=== PATIENT | female | born 1975 | race Caucasian/White ===

== ENCOUNTER 2022-02-04 09:02 | Emergency (ER) | payer OTHER ==
[~2022-02-04] VITALS: Ht 157.5 cm; Wt 77.1 kg
[2022-02-04 09:05] VITALS: BP_SYST 123
--- NOTE | 2022-02-04 09:15 | NUR ---
Placed in room 6 . Placed on environmental monitoring specialist, blood pressure machine and pulse oximeter. To gown for exam. Side rails up. Report given to CAITLIN SILVA.
--- NOTE | 2022-02-04 09:20 | NUR ---
PT BIB , REPORTS HAVING BILATERAL INNER THIGH LIFT 01/18/22 IN [place] WITH STITCHES PLACED. REPORTS NOTICING OVER LAST 2 DAYS BLEEDING FROM STITCHES AND THINKS THEY ARE OPENING UP. ON INSPECTION INCISION IS PINK AND DRY, NO DRAINAGE, IN HEALING STAGES, SOME STICHES APPEAR TO BE OPENING. REPORTS PAIN AND TENDERNESS TO THE AREA. PT IS AMBULATORY, [id number], VSS
[2022-02-04] MEDS ORDERED: NACL 0.9% 1,000 ML IV ONE (10:30)
[2022-02-04] MEDS ORDERED: VANCOMYCIN HCL 1,000 MG in D5W 250 ML IV ONE (10:30)
[2022-02-04] MEDS ORDERED: PIPERACILLIN/TAZO 3.38 GM in D5W 50 ML IV ONE (10:30)
[2022-02-04] MEDS ORDERED: VANCOMYCIN HCL 1000 MG/VIAL IV ONE (10:40)
[2022-02-04 11:37] LABS: BASOPHILS # (AUTO) 0.1 K/uL (0.0-0.2); BASOPHILS % (AUTO) 0.9 % (0.0-2.0); EOSINOPHILS # (AUTO) 0.1 K/uL (0.0-0.4); EOSINOPHILS % (AUTO) 2.5 % (0.0-4.0); HEMATOCRIT 34.1 % (36-48); HEMOGLOBIN 10.9 g/dL (12.0-16.0); LYMPHOCYTES # (AUTO) 1.3 K/uL (1.0-5.5); LYMPHOCYTES % (AUTO) 23.8 % (20.5-51.5); MEAN CORPUSCULAR HEMOGLOBIN 27 pg (27-31); MEAN CORPUSCULAR HGB CONC 32 % (32-36); MEAN CORPUSCULAR VOLUME 84 fL (79.0-98.0); MONOCYTES # (AUTO) 0.4 K/uL (0.0-1.0); MONOCYTES % (AUTO) 7.8 % (1.7-9.3); NEUTROPHILS # (AUTO) 3.6 K/uL (1.8-7.7); PLATELET COUNT (AUTO) 313 K/uL (130-430); RED BLOOD CELL COUNT(AUTO) 4.07 MIL/uL (4.2-6.2); RED CELL DISTRIBUTION WIDTH 18.8 % (9.0-15.0); WHITE BLOOD COUNT (AUTO) 5.5 K/uL (4.8-10.8)
--- NOTE | 2022-02-04 11:42 | NUR ---
PT AMBULATED TO BR
--- NOTE | 2022-02-04 12:01 | NUR ---
WOUND CULTURES TO LAB
[2022-02-04 12:13] LABS: ANION GAP 7 (5-15); CALCIUM 9.2 mg/dL (8.4-11.0); CHLORIDE 105 mmol/L (98-107); CREATININE 0.66 mg/dL (0.55-1.30); GLUCOSE 91 mg/dL (70-99); INR 0.9 (0.8-1.2); POTASSIUM 4.6 mmol/L (3.5-5.1); PROTHROMBIN TIME 9.3 SECS (9.5-12.5); SODIUM SERUM 138 mmol/L (136-145); UREA NITROGEN, BLOOD 14 mg/dL (8-21)
[2022-02-04 12:18] LABS: BILIRUBIN,URINE NEGATIVE (NEGATIVE); BLOOD, URINE NEGATIVE (NEGATIVE); CLARITY/URINE CLEAR (CLEAR); COLOR,URINE YELLOW (YELLOW); GLUCOSE,URINE NEGATIVE (NEGATIVE); KETONES,URINE NEGATIVE (NEGATIVE); LEUKOCYTE ESTERASE ,URINE NEGATIVE (NEGATIVE); NITRITE, URINE NEGATIVE (NEGATIVE); PROTEIN URINE NEGATIVE (NEGATIVE); UROBILINOGEN,URINE 0.2 (0.2-1.0)
[2022-02-04] MEDS ORDERED: SULF1TAB48 PO (12:20)
[2022-02-04] MEDS ORDERED: AUG875 PO (12:20)
[2022-02-04] MEDS ORDERED: IBUP-1969 PO (12:20)
[2022-02-04 12:22] LABS: ALANINE AMINOTRANSFERASE 32 U/L (12-78); ALBUMIN 3.3 g/dL (3.4-4.8); ASPARTATE AMINOTRANSFERASE 15 U/L (10-37); TOTAL BILIRUBIN 0.5 mg/dL (0.0-1.0)
[2022-02-04 12:25] LABS: GFR AFRICAN AMERICAN 125 mL/min (>90)
[2022-02-04] MEDS ORDERED: PIPERACILLIN/TAZOBACTAM 3.375 GM/VIAL (ZOSYN) IV ONE (13:09)
--- NOTE | 2022-02-04 13:36 | NUR ---
ULTRASOUND AT BEDSIDE
[2022-02-04 14:57] VITALS: BP_SYST 133
--- NOTE | 2022-02-04 14:59 | NUR ---
Patient given written and verbal discharge instructions and verbalizes understanding. ER MD RIZZO discussed with patient the results and treatment provided. Patient in stable condition. ID arm band removed. IV catheter removed intact and dressing applied, no active bleeding. Rx of SULFA, AUGMENTIN IBPROFEN given. Patient educated on pain management and to follow up with PMD. Pain Scale 3. Opportunity for questions provided and answered. Medication side effect fact sheet provided.
== END 2022-02-04 14:57 | disposition home or self-care (01) ==
LOC: SED 09:02
DX: O90.0 Disruption of cesarean delivery wound (principal); Z79.899 Other long term (current) drug therapy
CPT/HCPCS: 99285; 93970; 96365; 96366; 80053; 85025; 85610; 85730; 87040; 87070; 87086; 84484; 87075; 36415; 93005; 96368; 83605; 81003; J2543; J3370